=== PATIENT | female | born 1940 | race Caucasian/White ===

== ENCOUNTER 2025-08-16 09:39 | Inpatient (IN) ==
[2025-08-16 10:13] LABS: Basophils # (Auto) 0.03 K/mcL (0.00-0.30); Basophils % (Auto) 0.3 % (0.0-2.0); Eosinophils # (Auto) 0 K/mcL (0.00-0.70); Eosinophils % (Auto) 0 % (0.0-7.0); Hematocrit 47.9 % (34.1-44.9); Hemoglobin 15.7 g/dL (11.2-15.7); Lymphocytes # (Auto) 3.97 K/mcL (1.50-4.80); Lymphocytes % (Auto) 41.7 % (15.5-49.0); Mean Corpuscular HGB Conc 32.8 g/dL (31.0-36.0); Monocytes # (Auto) 0.97 K/mcL (0.10-0.90); Monocytes % (Auto) 10.2 % (1.0-12.0); Neutrophils % (Auto) 47.7 % (38.0-78.0); Platelet Count 211 K/mcL (140-440); RBC 4.96 M/mcL (3.59-5.38); WBC 9.5 K/mcL (4.5-11.0)
[2025-08-16 10:25] LABS: INR 0.9 (0.9-1.1); Partial Thromboplastin Time 30.1 sec (20.0-37.0); Prothrombin Time 13.2 sec (11.9-14.5)
[2025-08-16 10:32] LABS: ALT/SGPT 9 U/L (<40); AST/SGOT 16 U/L (<32); Albumin 3.7 gm/dL (3.2-5.2); Albumin/Globulin Ratio 1.5 (1.0-2.3); Alkaline Phosphatase 75 U/L (39-117); Anion Gap 10.0 (8.0-16.0); Bilirubin,Total 0.4 mg/dL (0.1-1.0); Blood Urea Nitrogen 12 mg/dL (8-23); Calcium 9.8 mg/dL (8.6-10.4); Carbon Dioxide 30 mmol/L (22-30); Chloride 99 mmol/L (96-108); Globulin 2.5 gm/dL (2.2-3.7); Glucose 100 mg/dL (70-105); Potassium 4.7 mmol/L (3.3-5.1); Sodium 139 mmol/L (133-145)
[2025-08-16] MEDS: 0.9 % SODIUM CHLORIDE 500 ML IV ONE (12:05)
[2025-08-16] MEDS: LORazepam 2 MG/ML VIAL IV ONE (12:39)
[2025-08-16] MEDS: ONDANSETRON 4 MG ODT TABLET SL ONE (12:52)
[2025-08-16 13:43] LABS: Bacteria,Urine Mod /hpf (0); Bilirubin,Urine NEGATIVE (Negative); Color,Urine LT. YELLOW; Glucose,Urine (UA) NEGATIVE (Negative); Ketones,Urine NEGATIVE (Negative); Leukocyte Esterase,Urine SMALL /uL (Negative); Mucus,Urine Few /hpf; PH,Urine 6.5 (5.0-9.0); Protein,Urine NEGATIVE (Negative); Specific Gravity,Urine <= 1.005 (1.000-1.035); Urobilinogen,Urine 0.2 mg/dL
[2025-08-16] MEDS: ATORVASTATIN 40 MG TABLET PO ONE (14:18)
[2025-08-16] MEDS: CLOPIDOGREL 300 MG TABLET PO ONE (14:18)
[2025-08-16] MEDS: ASPIRIN 81 MG TAB.CHEW CHEWED ONE (14:18)
[2025-08-16] MEDS: ASPIRIN 81 MG TAB.CHEW ONE (14:38)
[2025-08-16] MEDS: CIPROFLOXACIN 500 MG TABLET PO ONE (14:53)
[2025-08-16 16:28] LABS: Thyroid Stimulating Hormone 6.56 uIU/mL (0.27-5.01)
[2025-08-16 16:32] LABS: Estimated Average Glucose(eAG) 108 mg/dL; Hemoglobin A1C 5.4 % Hgb (4.0-6.0)
[2025-08-16] MEDS ORDERED: IPRATROPIUM/ALBUTEROL 3 ML AMPUL.NEB NEB PRN (16:42)
[2025-08-16] MEDS ORDERED: ONDANSETRON 4 MG/2 ML VIAL IV PRN (16:42)
[2025-08-16] MEDS ORDERED: ACETAMINOPHEN 325 MG TABLET PO PRN (16:42)
[2025-08-16] MEDS ORDERED: SENNOSIDES 1 TABLET PO PRN (16:42)
[2025-08-16] MEDS: HYDROcodone/APAP 10/325MG TABLET PO PRN (19:13)
[2025-08-16] MEDS: PREGABALIN 25 MG CAPSULE PO SCH (20:26)
[2025-08-16] MEDS: ATORVASTATIN 40 MG TABLET PO SCH (20:26)
[2025-08-16] MEDS: HEPARIN 5,000 UNIT/ML VIAL SQ SCH (20:26)
[2025-08-16] MEDS: DOCUSATE SODIUM 100 MG CAPSULE PO SCH (20:27)
[2025-08-16] MEDS ORDERED: ATORVASTATIN 40 MG TABLET PO SCH (21:00)
[2025-08-16] MEDS: 0.9 % SODIUM CHLORIDE 10 ML SYRINGE IV SCH (22:46)
[2025-08-17] MEDS: PREGABALIN 25 MG CAPSULE PO SCH (08:11)
[2025-08-17] MEDS: CLOPIDOGREL 75 MG TABLET PO SCH (08:12)
[2025-08-17] MEDS: ASPIRIN 81 MG TAB.CHEW CHEWED SCH (08:12)
[2025-08-17] MEDS: TIMOLOL 0.5% OPHTH DROPS BOTTLE 5ML OU SCH (11:32)
[2025-08-17 11:44] LABS: Basophils # (Auto) 0.03 K/mcL (0.00-0.30); Basophils % (Auto) 0.3 % (0.0-2.0); Eosinophils # (Auto) 0 K/mcL (0.00-0.70); Eosinophils % (Auto) 0 % (0.0-7.0); Hematocrit 46.2 % (34.1-44.9); Hemoglobin 14.8 g/dL (11.2-15.7); Lymphocytes # (Auto) 3.00 K/mcL (1.50-4.80); Lymphocytes % (Auto) 34.5 % (15.5-49.0); Mean Corpuscular HGB Conc 32.0 g/dL (31.0-36.0); Monocytes # (Auto) 0.83 K/mcL (0.10-0.90); Monocytes % (Auto) 9.6 % (1.0-12.0); Neutrophils % (Auto) 55.5 % (38.0-78.0); Platelet Count 198 K/mcL (140-440); RBC 4.76 M/mcL (3.59-5.38); WBC 8.7 K/mcL (4.5-11.0)
[2025-08-17 12:08] LABS: HDL Cholesterol 35 mg/dL (>40); LDL Cholesterol,Calculated 86 mg/dL (<100); Phosphorous 3.5 mg/dL (2.5-4.5); Triglycerides 229 mg/dL (<150)
[2025-08-17 12:26] LABS: ALT/SGPT 8 U/L (<40); AST/SGOT 14 U/L (<32); Albumin 3.5 gm/dL (3.2-5.2); Albumin/Globulin Ratio 1.5 (1.0-2.3); Alkaline Phosphatase 69 U/L (39-117); Anion Gap 10.0 (8.0-16.0); Bilirubin,Total 0.4 mg/dL (0.1-1.0); Blood Urea Nitrogen 13 mg/dL (8-23); Calcium 9.5 mg/dL (8.6-10.4); Carbon Dioxide 30 mmol/L (22-30); Chloride 101 mmol/L (96-108); Globulin 2.3 gm/dL (2.2-3.7); Glucose 112 mg/dL (70-105); Potassium 4.5 mmol/L (3.3-5.1); Sodium 141 mmol/L (133-145)
[2025-08-17] MEDS ORDERED: HYDROcodone/APAP 10/325MG TABLET PO PRN (14:00)
[2025-08-17] MEDS: OMEPRAZOLE 20 MG CAPSULE PO SCH (15:18)
[2025-08-17] MEDS: ATORVASTATIN 40 MG TABLET PO SCH (20:30)
[2025-08-18 07:03] LABS: Basophils # (Auto) 0.04 K/mcL (0.00-0.30); Basophils % (Auto) 0.6 % (0.0-2.0); Eosinophils # (Auto) 0 K/mcL (0.00-0.70); Eosinophils % (Auto) 0 % (0.0-7.0); Hematocrit 48.0 % (34.1-44.9); Hemoglobin 15.7 g/dL (11.2-15.7); Lymphocytes # (Auto) 2.87 K/mcL (1.50-4.80); Lymphocytes % (Auto) 40.5 % (15.5-49.0); Mean Corpuscular HGB Conc 32.7 g/dL (31.0-36.0); Monocytes # (Auto) 0.62 K/mcL (0.10-0.90); Monocytes % (Auto) 8.8 % (1.0-12.0); Neutrophils % (Auto) 50.1 % (38.0-78.0); Platelet Count 130 K/mcL (140-440); RBC 4.98 M/mcL (3.59-5.38); WBC 7.1 K/mcL (4.5-11.0)
[2025-08-18 07:22] LABS: ALT/SGPT 7 U/L (<40); AST/SGOT 15 U/L (<32); Albumin 3.4 gm/dL (3.2-5.2); Albumin/Globulin Ratio 1.4 (1.0-2.3); Alkaline Phosphatase 67 U/L (39-117); Anion Gap 11.0 (8.0-16.0); Bilirubin,Total 0.5 mg/dL (0.1-1.0); Blood Urea Nitrogen 10 mg/dL (8-23); Calcium 9.5 mg/dL (8.6-10.4); Carbon Dioxide 27 mmol/L (22-30); Chloride 103 mmol/L (96-108); Globulin 2.4 gm/dL (2.2-3.7); Glucose 116 mg/dL (70-105); Potassium 3.9 mmol/L (3.3-5.1); Sodium 141 mmol/L (133-145)
[2025-08-18] MEDS ORDERED: METOPROLOL SUCCINATE 50 MG TAB.XL.24H PO SCH (09:00)
[2025-08-18 17:58] LABS: Bacteria,Urine Few /hpf (0); Bilirubin,Urine NEGATIVE (Negative); Color,Urine LT. YELLOW; Glucose,Urine (UA) NEGATIVE (Negative); Ketones,Urine NEGATIVE (Negative); Leukocyte Esterase,Urine SMALL /uL (Negative); PH,Urine 6.5 (5.0-9.0); Protein,Urine NEGATIVE (Negative); Specific Gravity,Urine <= 1.005 (1.000-1.035); Urine Amorphous Crystals Many /hpf; Urobilinogen,Urine 0.2 mg/dL
[2025-08-18] MEDS: LEVOFLOXACIN 750 MG/150 ML BAG IV ONE (19:28)
[2025-08-19 07:20] VITALS: TEMP 97.6; O2SAT 93
[2025-08-19] MEDS: METOPROLOL SUCCINATE 50 MG TAB.XL.24H PO SCH (09:51)
[2025-08-19] MEDS: LEVOFLOXACIN 250 MG/50 ML BAG IV SCH (09:52)
== END 2025-08-19 10:12 | DRG 65 ==
LOC: ED 09:39 → ICU 16:32 → MEDSUR 08-17 23:19
PROVIDERS: ADMIT Student in an Organized Health Care Education/Training Program; ATTEND Internal Medicine